=== PATIENT | female | born 1965 | race Caucasian/White ===

== ENCOUNTER 2019-10-23 15:03 | Emergency (ER) | payer OTHER ==
[2019-10-23] MEDS ORDERED: ACETAMINOPHEN 1,000 MG/100 ML BTL IVPB ONE (16:14)
--- NOTE | 2019-10-23 16:19 | Emergency Department Record ---
History of Present Illness - General Chief Complaint: Headache Migraine Stated Complaint: HEADACHE WEEK AND A HALF Time Seen by Provider: 10/23/19 15:54 Source: Patient, RN notes reviewed Mode of Arrival: Ambulatory - History of Present Illness Initial Comments: hypertension and recently it was stopped and because her BP was down and enalapril was stopped and hctz was kept going and headache started 10 days ago and it moves around no neck pain and not toxic no problems with balance or vision. MD Complaint: Headache Onset/Timin -: Days(s) Location: Occipital, Retro-orbital Improves With: Nothing Worsens With: Noise, Other Associated Symptoms: Other - Related Data Home Medications Medication Instructions Recorded Confirmed Last Taken Hydrochlorothiazide [Hctz] 25 mg PO DAILY 10/23/19 10/23/19 10/23/19 Multivitamin [Multi-Vitamin Daily] 1 each PO DAILY 10/23/19 10/23/19 10/23/19 Previous Rx's Medication Instructions Recorded Enalapril Maleate 10 mg PO DAILY #30 tablet 10/23/19 Allergies Allergy/AdvReac Type Severity Reaction Status Date / Time codeine AdvReac NAUSEA Verified 10/23/19 15:34 Travel Screening - Travel/Exposure Within Last 30 Days Have you traveled within the last 30 days?: No - Travel/Exposure Within Last Year Have you traveled outside the [place] in the last year?: No - Additonal Travel Details Have you been exposed to anyone with a communicable illness?: No - Travel Symptoms Symptom Screening: None Past Medical History - SOCIAL HISTORY Smoking Status: Never smoker Alcohol Use: Rare Drug Use: None - RESPIRATORY Hx Respiratory Disorders: Yes Hx Pneumonia: Yes - CARDIOVASCULAR Hx Cardio Disorders: Yes Hx Hypertension: Yes - NEURO Hx Neuro Disorders: No - GI Hx GI Disorders: No - Hx Genitourinary Disorders: No - ENDOCRINE Hx Endocrine Disorders: No Hx Diabetes: No Hx Thyroid Disease: No (possible hypo) - MUSCULOSKELETAL Hx Musculoskeletal Disorders: No - PSYCH Hx Psych Problems: No - HEMATOLOGY/ONCOLOGY Hx Hematology/Oncology Disorders: No Family Medical History Any Significant Family History?: No Hx Cancer: Mother Hx Heart Disease: Brother/Sister Hx Stroke: Grandparents Physical Exam - General General Appearance: Alert, Oriented x3, Cooperative, No acute distress - Head Head exam: Normal inspection - Eye Eye exam: Normal appearance, PERRL Pupils: Normal accommodation - ENT ENT exam: Normal exam, Mucous membranes moist, Normal external ear exam, Normal orophraynx, TM's normal bilaterally Ear exam: Normal external inspection. negative: External canal tenderness Nasal Exam: Normal inspection. negative: Discharge, Sinus tenderness Mouth exam: Normal external inspection, Tongue normal Teeth exam: Normal inspection. negative: Dental caries Throat exam: Normal inspection. negative: Tonsillar erythema, Tonsillar exudate - Neck Neck exam: Normal inspection, Full ROM. negative: Tenderness - Respiratory Respiratory exam: Normal lung sounds bilaterally. negative: Respiratory distress - Cardiovascular Cardiovascular Exam: Regular rate, Normal rhythm, Normal heart sounds - GI/Abdominal GI/Abdominal exam: Soft, Normal bowel sounds. negative: Tenderness - Rectal Rectal exam: Deferred - exam: Deferred - Extremities Extremities exam: Normal inspection, Full ROM, Normal capillary refill. negative: Tenderness - Back Back exam: Reports: Normal inspection, Full ROM. Denies: Muscle spasm, Rash noted, Tenderness - Neurological Neurological exam: Alert, Normal gait, Oriented X3, Reflexes normal - Psychiatric Psychiatric exam: Normal affect, Normal mood - Skin Skin exam: Dry, Intact, Normal color, Warm Course Vital Signs 10/23/19 15:08 Temperature 98.3 F Pulse Rate 79 Respiratory 16 Rate Blood Pressure 163/85 Pulse Ox 98 - Reevaluation(s) Reevaluation #1: headache is better 10/23/19 17:27 Medical Decision Making - Lab Data Result diagrams: 10/23/19 15:20 10/23/19 15:20 Disposition Clinical Impression: Headache Qualifiers: Headache type: unspecified Headache chronicity pattern: acute headache Intractability: not intractable Qualified Code(s): R51 - Headache Disposition: Home, Self-Care Condition: (1) Good Instructions: Acute Headache (ED) Additional Instructions: restart enalapril 10 mg daily continue tylenol or motrin for headach follow up with your family Dr to inform him I restarted enalapril 10 mg daily Prescriptions: Enalapril Maleate 10 mg PO DAILY #30 tablet Forms: Patient Portal Access Time of Disposition: 17:28 Quality - Quality Measures Quality Measures: N/A - Blood Pressure Screening Does Patient Have Any of the Following: No, Active Dx of HTN Blood Pressure Classification: Pre-Hypertensive BP Reading Systolic Measurement: 163 Diastolic Measurement: 85 Screening for High Blood Pressure: Patient Exclusion, Hx of HTN [[id number]]
[2019-10-23] MEDS ORDERED: 0.9 % SODIUM CHLORIDE 500ML 500 ML IV SCH (16:30)
[2019-10-23] MEDS ORDERED: ENALAPRIL 5 MG TABLET PO SCH (16:30)
[2019-10-23 17:22] LABS: ABSOLUTE NEUTROPHIL COUNT 6.74; BASO % 0.4 % (0-6); EOS % 0.8 % (0-6); GRAN % 69.3 % (47-80); HEMATOCRIT 43.1 % (35.0-47.0); HEMOGLOBIN 14.6 gm/dl (11.6-16.0); LYMPH % 20.9 % (16-45); MEAN CELL VOLUME 91.7 fl (81-97); MEAN CORPUSCULAR HEMOGLOBIN 31.1 pg (27-33); MEAN CORPUSCULAR HGB CONC 33.9 g/dl (32-36); MONO % 8.6 % (0-9); PLATELET COUNT 386 K/uL (130-400); RED CELL DISTRIBUTION WIDTH 13.5 % (11.5-14.5); WHITE BLOOD COUNT W/O DIFF 9.7 K/uL (4.2-12.2)
[2019-10-23 17:35] LABS: BLOOD UREA NITROGEN 14 mg/dL (6-20); CREATININE 0.6 mg/dL (0.5-0.9); EST GLOMERULAR FILTRATION RATE > 60 mL/min
[2019-10-23 17:38] LABS: GLUCOSE,RANDOM 117 mg/dL (74-109)
== END 2019-10-23 17:47 | disposition home or self-care (01) ==
LOC: ER 15:03
DX: R51 Headache (principal); I10 Essential (primary) hypertension
CPT/HCPCS: 80048; 85025; 96365; 99283; 99284; J7040